=== PATIENT | female | born 1980 | race Caucasian/White ===

== ENCOUNTER 2016-10-12 09:34 | Emergency (ER) | payer OTHER ==
[2011-01-02 06:17] VITALS: BMI 26.8
[2016-10-12 10:28] LABS: BASOPHILS 0.5 % (0.0-2.0); EOSINOPHILS 5.4 % (0-7); HEMATOCRIT 41.3 % (36.0-48.0); LYMPHOCYTES 24.2 % (15-50); MCH 30.4 pg (26.0-34.0); MCHC 33.9 g/dL (31.0-37.0); MCV 89.8 fL (80.0-100.0); MEAN PLATELET VOLUME 9.4 fL (7.4-10.4); NEUTROPHILS 60.9 % (40-80); PLATELET COUNT 322 10x3/uL (130-400); RDW 12.2 % (11.5-14.5); WBC 5.9 10x3/uL (4.8-10.8)
[2016-10-12 10:37] LABS: HCG URINE NEGATIVE (NEGATIVE)
[2016-10-12 10:45] LABS: ALBUMIN 4.1 g/dL (3.4-5.0); ALKALINE PHOSPHATASE 69 U/L (46-116); ALT (SGPT) 45 U/L (10-68); CALC OSMOLALITY 279 mosm/kg (275-300); CARBON DIOXIDE 29.7 mmol/L (21.0-32.0); CHLORIDE - SERUM 104 mmol/L (98-107); CREATININE - SERUM 0.8 mg/dL (0.6-1.3); GLUCOSE 97 mg/dL (74-106); POTASSIUM - SERUM 4.3 mmol/L (3.5-5.1); PROTEIN - SERUM 7.8 g/dL (6.4-8.2); SODIUM 140 mmol/L (136-145); UREA NITROGEN 15 mg/dL (7-18); eGFR NON AFRICAN AMERICAN 87 mL/min (90-120)
[2016-10-12 10:52] LABS: APPEARANCE CLOUDY (CLEAR); BACTERIA MODERATE /hpf (NONE SEEN); BILIRUBIN NEGATIVE (NEGATIVE); COLOR STRAW (YELLOW); GLUCOSE NEGATIVE (NEGATIVE); KETONE NEGATIVE (NEGATIVE); LEUKOCYTE ESTERASE NEGATIVE (NEGATIVE); NITRITE NEGATIVE (NEGATIVE); PROTEIN TRACE mg/dL (NEGATIVE); RED CELLS - URINE 0-5 /hpf (0-5); SPECIFIC GRAVITY 1.005 (1.005-1.020); UROBILINOGEN NORMAL (NORMAL); WHITE CELLS - URINE OCC /hpf (0-5)
[2016-10-12 10:53] LABS: MUCUS <1+ /lpf (NONE SEEN)
== END 2016-10-12 13:21 | disposition home or self-care (01) ==
LOC: D.ER 09:34
PROVIDERS: Emergency Medicine
DX: R07.89 Other chest pain (principal); S00.83XA Contusion of other part of head, initial encounter; W19.XXXA Unspecified fall, initial encounter; Y93.89 Activity, other specified; Y92.019 Unspecified place in single-family (private) house as the place of occurrence of the external cause; Z85.41 Personal history of malignant neoplasm of cervix uteri; R00.2 Palpitations; I47.1 Supraventricular tachycardia; R00.1 Bradycardia, unspecified

== ENCOUNTER 2017-02-20 09:18 | Emergency (ER) | payer SELFPAY ==
[2011-01-02 06:17] VITALS: BMI 26.8
[2017-02-20 10:05] LABS: APPEARANCE SLT CLOUDY (CLEAR); BILIRUBIN NEGATIVE (NEGATIVE); COLOR YELLOW (YELLOW); GLUCOSE NEGATIVE (NEGATIVE); KETONE NEGATIVE (NEGATIVE); LEUKOCYTE ESTERASE NEGATIVE (NEGATIVE); NITRITE NEGATIVE (NEGATIVE); PROTEIN NEGATIVE (NEGATIVE); UROBILINOGEN NORMAL (NORMAL)
[2017-02-20 10:08] LABS: BACTERIA NONE SEEN /hpf (NONE SEEN); EPITHELIAL CELLS 25-50 /hpf (0-5); RED CELLS - URINE NONE SEEN /hpf (0-5); WHITE CELLS - URINE 0-5 /hpf (0-5)
[2017-02-20 10:18] LABS: BASOPHILS 0.4 % (0-2); EOSINOPHILS 4.1 % (0-7); HEMOGLOBIN 14.3 g/dL (12-16); IMMATURE GRANULOCYTES 0.2 % (0-5); LYMPHOCYTES 31.2 % (15-50); MCH 30.7 pg (26.0-34.0); MCV 90.1 fL (80.0-100.0); MEAN PLATELET VOLUME 9.1 fL (7.4-10.4); MONOCYTES 10.5 % (2-11); NEUTROPHILS 53.6 % (40-80); PLATELET COUNT 282 10x3/uL (130-400); RBC 4.66 10x6/uL (4.00-5.40); WBC 5.6 10x3/uL (4.8-10.8)
[2017-02-20 10:46] LABS: ALBUMIN 4.2 g/dL (3.4-5.0); ALKALINE PHOSPHATASE 106 U/L (46-116); ALT (SGPT) 78 U/L (10-68); BILIRUBIN - TOTAL 0.55 mg/dL (0.2-1.3); CALC OSMOLALITY 271 mosm/kg (275-300); CALCIUM 9.4 mg/dL (8.5-10.1); CARBON DIOXIDE 25.9 mmol/L (21.0-32.0); CHLORIDE - SERUM 101 mmol/L (98-107); CREATININE - SERUM 0.7 mg/dL (0.6-1.3); GLUCOSE 94 mg/dL (74-106); POTASSIUM - SERUM 3.4 mmol/L (3.5-5.1); PROTEIN - SERUM 8.1 g/dL (6.4-8.2); SODIUM 136 mmol/L (136-145); UREA NITROGEN 12 mg/dL (7-18); eGFR NON AFRICAN AMERICAN > 90 mL/min (90-120)
[2017-02-20 10:56] LABS: HCG SERUM NEGATIVE (NEGATIVE)
== END 2017-02-20 16:24 | disposition home or self-care (01) ==
LOC: D.ER 09:18
PROVIDERS: Emergency Medicine
DX: R10.31 Right lower quadrant pain (principal); Z85.41 Personal history of malignant neoplasm of cervix uteri

== ENCOUNTER 2017-06-07 07:00 | Emergency (ER) | payer BC ==
[2011-01-02 06:17] VITALS: BMI 26.8
[2017-06-07 07:53] LABS: BASOPHILS 0.5 % (0-2); EOSINOPHILS 2.8 % (0-7); HEMATOCRIT 39.6 % (36.0-48.0); IMMATURE GRANULOCYTES 0.1 % (0-5); LYMPHOCYTES 24.1 % (15-50); MCH 30.6 pg (26.0-34.0); MCHC 35.4 g/dL (31.0-37.0); MCV 86.7 fL (80.0-100.0); MEAN PLATELET VOLUME 9.4 fL (7.4-10.4); MONOCYTES 14.7 % (2-11); NEUTROPHILS 57.8 % (40-80); PLATELET COUNT 305 10x3/uL (130-400); RBC 4.57 10x6/uL (4.00-5.40); RDW 12.1 % (11.5-14.5); WBC 7.9 10x3/uL (4.8-10.8)
[2017-06-07 08:02] LABS: APPEARANCE HAZY (CLEAR); BILIRUBIN NEGATIVE (NEGATIVE); COLOR YELLOW (YELLOW); GLUCOSE NEGATIVE (NEGATIVE); HCG URINE NEGATIVE (NEGATIVE); KETONE NEGATIVE (NEGATIVE); NITRITE NEGATIVE (NEGATIVE); PROTEIN NEGATIVE (NEGATIVE); SPECIFIC GRAVITY 1.015 (1.005-1.020); UROBILINOGEN NORMAL (NORMAL)
[2017-06-07 08:08] LABS: BACTERIA MODERATE /hpf (NONE SEEN); RED CELLS - URINE 0-5 /hpf (0-5); WHITE CELLS - URINE 0-5 /hpf (0-5)
[2017-06-07 08:09] LABS: MUCUS <1+ /lpf (NONE SEEN)
[2017-06-07 08:20] LABS: ALBUMIN 4.4 g/dL (3.4-5.0); ALKALINE PHOSPHATASE 93 U/L (46-116); ALT (SGPT) 44 U/L (10-68); BILIRUBIN - TOTAL 0.55 mg/dL (0.2-1.3); CALC OSMOLALITY 272 mosm/kg (275-300); CALCIUM 9.8 mg/dL (8.5-10.1); CARBON DIOXIDE 26.6 mmol/L (21.0-32.0); CHLORIDE - SERUM 101 mmol/L (98-107); CREATININE - SERUM 0.8 mg/dL (0.6-1.3); GLUCOSE 109 mg/dL (74-106); PROTEIN - SERUM 8.4 g/dL (6.4-8.2); SODIUM 137 mmol/L (136-145); UREA NITROGEN 8 mg/dL (7-18); eGFR NON AFRICAN AMERICAN 86 mL/min (90-120)
== END 2017-06-07 10:35 | disposition home or self-care (01) ==
LOC: D.ER 07:00
PROVIDERS: Emergency Medicine
DX: I49.9 Cardiac arrhythmia, unspecified (principal)

== ENCOUNTER 2017-07-29 07:04 | Emergency (ER) | payer BC ==
[2011-01-02 06:17] VITALS: BMI 26.8
[2017-07-29 07:42] LABS: BASOPHILS 0.4 % (0-2); EOSINOPHILS 2.3 % (0-7); HEMOGLOBIN 14.2 g/dL (12-16); IMMATURE GRANULOCYTES 0.3 % (0-5); LYMPHOCYTES 23.7 % (15-50); MCH 30.3 pg (26.0-34.0); MCHC 35.5 g/dL (31.0-37.0); MCV 85.3 fL (80.0-100.0); MONOCYTES 10.5 % (2-11); NEUTROPHILS 62.8 % (40-80); PLATELET COUNT 361 10x3/uL (130-400); RBC 4.69 10x6/uL (4.00-5.40); RDW 12.1 % (11.5-14.5); WBC 7.8 10x3/uL (4.8-10.8)
[2017-07-29 07:55] LABS: ALBUMIN 4.5 g/dL (3.4-5.0); ALKALINE PHOSPHATASE 73 U/L (46-116); ALT (SGPT) 25 U/L (10-68); BILIRUBIN - TOTAL 0.54 mg/dL (0.2-1.3); CALC OSMOLALITY 267 mosm/kg (275-300); CALCIUM 9.5 mg/dL (8.5-10.1); CARBON DIOXIDE 22.1 mmol/L (21.0-32.0); CHLORIDE - SERUM 100 mmol/L (98-107); CREATININE - SERUM 0.8 mg/dL (0.6-1.3); GLUCOSE 89 mg/dL (74-106); PROTEIN - SERUM 8.3 g/dL (6.4-8.2); SODIUM 135 mmol/L (136-145); UREA NITROGEN 11 mg/dL (7-18); eGFR NON AFRICAN AMERICAN 86 mL/min (90-120)
[2017-07-29 07:57] LABS: POTASSIUM - SERUM 2.9 mmol/L (3.5-5.1)
[2017-07-29 08:06] LABS: CHOL - HDL RATIO 2.9 ratio (2.3-4.1); CHOLESTEROL, TOTAL 201 mg/dL (0-200); CKMB 1.5 U/L (0.0-3.6); CREATINE KINASE 134 UL (21-215); HDL CHOLESTEROL 69 mg/dL (32-96); LDL CHOLESTEROL 121 mg/dL (0-100); LDL-HDL RATIO 1.8 ratio (1.5-3.5); TRIGLYCERIDE 59 mg/dL (30-200)
[2017-07-29 08:11] LABS: TROPONIN-I < 0.017 ng/mL (0.000-0.060)
[2017-07-29 09:23] LABS: HCG URINE NEGATIVE (NEGATIVE)
[2017-07-29 09:31] LABS: APPEARANCE CLEAR (CLEAR); BILIRUBIN NEGATIVE (NEGATIVE); COLOR STRAW (YELLOW); GLUCOSE NEGATIVE (NEGATIVE); KETONE NEGATIVE (NEGATIVE); NITRITE NEGATIVE (NEGATIVE); PROTEIN NEGATIVE (NEGATIVE); UROBILINOGEN NORMAL (NORMAL)
[2017-07-29 09:32] LABS: BACTERIA FEW /hpf (NONE SEEN); EPITHELIAL CELLS 0-5 /hpf (0-5); RED CELLS - URINE 0-5 /hpf (0-5); WHITE CELLS - URINE 0-5 /hpf (0-5)
== END 2017-07-29 10:24 | disposition home or self-care (01) ==
LOC: D.ER 07:04
PROVIDERS: Emergency Medicine
DX: I49.9 Cardiac arrhythmia, unspecified (principal)

== ENCOUNTER 2017-08-04 07:07 | Emergency (ER) | payer BC ==
[2011-01-02 06:17] VITALS: BMI 26.8
[2017-08-04 07:41] LABS: BASOPHILS 0.4 % (0-2); EOSINOPHILS 4.9 % (0-7); HEMATOCRIT 39.9 % (36.0-48.0); HEMOGLOBIN 14.1 g/dL (12-16); IMMATURE GRANULOCYTES 0.1 % (0-5); LYMPHOCYTES 27.1 % (15-50); MCH 30.6 pg (26.0-34.0); MCHC 35.3 g/dL (31.0-37.0); MCV 86.6 fL (80.0-100.0); MEAN PLATELET VOLUME 9.2 fL (7.4-10.4); MONOCYTES 11.4 % (2-11); NEUTROPHILS 56.1 % (40-80); PLATELET COUNT 366 10x3/uL (130-400); RBC 4.61 10x6/uL (4.00-5.40); RDW 12.1 % (11.5-14.5); WBC 7.6 10x3/uL (4.8-10.8)
[2017-08-04 08:03] LABS: ALBUMIN 4.5 g/dL (3.4-5.0); ALKALINE PHOSPHATASE 72 U/L (46-116); ALT (SGPT) 21 U/L (10-68); BILIRUBIN - TOTAL 0.27 mg/dL (0.2-1.3); CALC OSMOLALITY 278 mosm/kg (275-300); CALCIUM 9.5 mg/dL (8.5-10.1); CARBON DIOXIDE 26.2 mmol/L (21.0-32.0); CHLORIDE - SERUM 101 mmol/L (98-107); CREATININE - SERUM 0.9 mg/dL (0.6-1.3); GLUCOSE 99 mg/dL (74-106); POTASSIUM - SERUM 3.5 mmol/L (3.5-5.1); PROTEIN - SERUM 8.4 g/dL (6.4-8.2); SODIUM 139 mmol/L (136-145); UREA NITROGEN 16 mg/dL (7-18); eGFR NON AFRICAN AMERICAN 75 mL/min (90-120)
[2017-08-04 08:11] LABS: CREATINE KINASE 196 UL (21-215); MAGNESIUM - SERUM 2.3 mg/dL (1.8-2.4); PRO BNP 10 pg/mL (0-125); TROPONIN-I < 0.017 ng/mL (0.000-0.060)
== END 2017-08-04 08:30 | disposition home or self-care (01) ==
LOC: D.ER 07:07
PROVIDERS: Emergency Medicine; Family Medicine
DX: R00.2 Palpitations (principal); R00.0 Tachycardia, unspecified

== ENCOUNTER 2017-09-14 09:35 | Emergency (ER) | payer BC ==
[2011-01-02 06:17] VITALS: BMI 26.8
[2017-09-14 10:47] LABS: BASOPHILS 0.1 % (0-2); EOSINOPHILS 2.5 % (0-7); HEMATOCRIT 40.8 % (36.0-48.0); HEMOGLOBIN 14.3 g/dL (12-16); IMMATURE GRANULOCYTES 0.1 % (0-5); LYMPHOCYTES 20.8 % (15-50); MCV 85.5 fL (80.0-100.0); MEAN PLATELET VOLUME 9.4 fL (7.4-10.4); MONOCYTES 9.8 % (2-11); NEUTROPHILS 66.7 % (40-80); PLATELET COUNT 313 10x3/uL (130-400); RBC 4.77 10x6/uL (4.00-5.40); RDW 12.1 % (11.5-14.5); WBC 9.2 10x3/uL (4.8-10.8)
[2017-09-14 11:00] LABS: ALBUMIN 4.2 g/dL (3.4-5.0); ALKALINE PHOSPHATASE 71 U/L (46-116); ALT (SGPT) 29 U/L (10-68); CALC OSMOLALITY 277 mosm/kg (275-300); CALCIUM 9.5 mg/dL (8.5-10.1); CARBON DIOXIDE 20.3 mmol/L (21.0-32.0); CHLORIDE - SERUM 103 mmol/L (98-107); GLUCOSE 96 mg/dL (74-106); POTASSIUM - SERUM 3.3 mmol/L (3.5-5.1); PROTEIN - SERUM 7.7 g/dL (6.4-8.2); SODIUM 138 mmol/L (136-145); UREA NITROGEN 19 mg/dL (7-18); eGFR NON AFRICAN AMERICAN 67 mL/min (90-120)
[2017-09-14 11:10] LABS: CREATINE KINASE 105 UL (21-215); THYROID STIMULATING HORMONE 2.09 uIU/mL (0.36-3.74); TROPONIN-I < 0.017 ng/mL (0.000-0.060)
== END 2017-09-14 12:22 | disposition home or self-care (01) ==
LOC: D.ER 09:35
PROVIDERS: Emergency Medicine
DX: R00.2 Palpitations (principal); R07.9 Chest pain, unspecified; E87.6 Hypokalemia

== ENCOUNTER → 2017-10-02 08:46 | Outpatient (CLI) | payer BC ==
[2011-01-02 06:17] VITALS: BMI 26.8
== END | disposition home or self-care (01) ==
LOC: D.US 08:46
DX: R10.9 Unspecified abdominal pain (principal)

== ENCOUNTER 2017-10-04 01:46 | Emergency (ER) | payer BC ==
[2011-01-02 06:17] VITALS: BMI 26.8
[2017-10-04 03:12] LABS: BASOPHILS 0.2 % (0-2); EOSINOPHILS 1.8 % (0-7); HEMATOCRIT 39.4 % (36.0-48.0); HEMOGLOBIN 14.2 g/dL (12-16); IMMATURE GRANULOCYTES 0.1 % (0-5); LYMPHOCYTES 25.9 % (15-50); MCH 30.7 pg (26.0-34.0); MCV 85.1 fL (80.0-100.0); MEAN PLATELET VOLUME 9.3 fL (7.4-10.4); MONOCYTES 12.6 % (2-11); NEUTROPHILS 59.4 % (40-80); PLATELET COUNT 372 10x3/uL (130-400); RBC 4.63 10x6/uL (4.00-5.40); RDW 11.9 % (11.5-14.5); WBC 8.9 10x3/uL (4.8-10.8)
[2017-10-04 03:19] LABS: HCG SERUM NEGATIVE (NEGATIVE)
[2017-10-04 03:24] LABS: ALBUMIN 4.6 g/dL (3.4-5.0); ALKALINE PHOSPHATASE 72 U/L (46-116); ALT (SGPT) 43 U/L (10-68); CALC OSMOLALITY 277 mosm/kg (275-300); CARBON DIOXIDE 18.9 mmol/L (21.0-32.0); CHLORIDE - SERUM 104 mmol/L (98-107); GLUCOSE 105 mg/dL (74-106); POTASSIUM - SERUM 3.2 mmol/L (3.5-5.1); PROTEIN - SERUM 8.4 g/dL (6.4-8.2); SODIUM 140 mmol/L (136-145); UREA NITROGEN 10 mg/dL (7-18); eGFR NON AFRICAN AMERICAN 67 mL/min (90-120)
[2017-10-04 03:35] LABS: CKMB 1.9 U/L (0.0-3.6); CREATINE KINASE 177 UL (21-215); TROPONIN-I < 0.017 ng/mL (0.000-0.060)
[2017-10-04 05:11] LABS: APPEARANCE CLOUDY (CLEAR); BILIRUBIN NEGATIVE (NEGATIVE); COLOR YELLOW (YELLOW); GLUCOSE NEGATIVE (NEGATIVE); KETONE MODERATE mg/dL (NEGATIVE); NITRITE NEGATIVE (NEGATIVE); PROTEIN NEGATIVE (NEGATIVE); UROBILINOGEN NORMAL (NORMAL)
[2017-10-04 05:12] LABS: BACTERIA MODERATE /hpf (NONE SEEN); RED CELLS - URINE 0-5 /hpf (0-5); WHITE CELLS - URINE 0-5 /hpf (0-5)
[2017-10-04 05:51] LABS: UDS - AMPHET POSITIVE QUAL (NEGATIVE); UDS - BARB NEGATIVE QUAL (NEGATIVE); UDS - BENZO NEGATIVE QUAL (NEGATIVE); UDS - COCAINE NEGATIVE QUAL (NEGATIVE); UDS - OPIATE NEGATIVE QUAL (NEGATIVE); UDS - PCP NEGATIVE QUAL (NEGATIVE); UDS - THC NEGATIVE QUAL (NEGATIVE)
== END 2017-10-04 06:58 | disposition home or self-care (01) ==
LOC: D.ER 01:46
PROVIDERS: Family Medicine
DX: R00.2 Palpitations (principal); E87.6 Hypokalemia

== ENCOUNTER 2017-12-12 10:03 | Emergency (ER) | payer BC ==
[2011-01-02 06:17] VITALS: BMI 26.8
[2017-12-12 11:29] LABS: BASOPHILS 0.3 % (0-2); EOSINOPHILS 1.9 % (0-7); HEMATOCRIT 40.1 % (36.0-48.0); HEMOGLOBIN 14.2 g/dL (12-16); IMMATURE GRANULOCYTES 0.1 % (0-5); LYMPHOCYTES 20.1 % (15-50); MCH 30.3 pg (26.0-34.0); MCHC 35.4 g/dL (31.0-37.0); MCV 85.7 fL (80.0-100.0); MEAN PLATELET VOLUME 9.4 fL (7.4-10.4); MONOCYTES 12.2 % (2-11); NEUTROPHILS 65.4 % (40-80); PLATELET COUNT 382 10x3/uL (130-400); RBC 4.68 10x6/uL (4.00-5.40); WBC 9.1 10x3/uL (4.8-10.8)
[2017-12-12 11:36] LABS: INR 1.06 (0.85-1.17); PROTIME 13.4 SECONDS (11.6-15.0)
[2017-12-12 11:37] LABS: APTT 28.2 SECONDS (22.8-39.4)
[2017-12-12 11:38] LABS: D-DIMER-QUANTITATIVE < 0.27 ug/mLFEU (0.20-0.54)
[2017-12-12 11:54] LABS: ALBUMIN 4.4 g/dL (3.4-5.0); ALKALINE PHOSPHATASE 75 U/L (46-116); ALT (SGPT) 24 U/L (10-68); BILIRUBIN - TOTAL 0.57 mg/dL (0.2-1.3); CALC OSMOLALITY 273 mosm/kg (275-300); CALCIUM 9.3 mg/dL (8.5-10.1); CHLORIDE - SERUM 102 mmol/L (98-107); CREATININE - SERUM 0.8 mg/dL (0.6-1.3); GLUCOSE 114 mg/dL (74-106); PROTEIN - SERUM 8.5 g/dL (6.4-8.2); SODIUM 137 mmol/L (136-145); UREA NITROGEN 9 mg/dL (7-18); eGFR NON AFRICAN AMERICAN 86 mL/min (90-120)
[2017-12-12 12:06] LABS: CKMB 1.5 U/L (0.0-3.6); CREATINE KINASE 160 UL (21-215); PRO BNP 17 pg/mL (0-125); TROPONIN-I < 0.017 ng/mL (0.000-0.060)
== END 2017-12-12 15:20 | disposition home or self-care (01) ==
LOC: D.ER 10:03
PROVIDERS: Family Medicine
DX: R00.0 Tachycardia, unspecified (principal); E86.0 Dehydration

== ENCOUNTER 2017-12-31 12:52 | Emergency (ER) | payer BC ==
[2011-01-02 06:17] VITALS: BMI 26.8
[2017-12-31 14:19] LABS: ALBUMIN 4.2 g/dL (3.4-5.0); ALKALINE PHOSPHATASE 89 U/L (46-116); ALT (SGPT) 81 U/L (10-68); CALC OSMOLALITY 278 mosm/kg (275-300); CALCIUM 9.8 mg/dL (8.5-10.1); CARBON DIOXIDE 24.1 mmol/L (21.0-32.0); CHLORIDE - SERUM 103 mmol/L (98-107); CREATININE - SERUM 0.8 mg/dL (0.6-1.3); GLUCOSE 108 mg/dL (74-106); POTASSIUM - SERUM 3.5 mmol/L (3.5-5.1); PROTEIN - SERUM 8.2 g/dL (6.4-8.2); SODIUM 140 mmol/L (136-145); UREA NITROGEN 11 mg/dL (7-18); eGFR NON AFRICAN AMERICAN 86 mL/min (90-120)
[2017-12-31 14:42] LABS: BASOPHILS 0.4 % (0-2); HEMATOCRIT 39.8 % (36.0-48.0); HEMOGLOBIN 13.9 g/dL (12-16); IMMATURE GRANULOCYTES 0.2 % (0-5); LYMPHOCYTES 28.7 % (15-50); MCH 30.5 pg (26.0-34.0); MCHC 34.9 g/dL (31.0-37.0); MCV 87.5 fL (80.0-100.0); MEAN PLATELET VOLUME 9.5 fL (7.4-10.4); NEUTROPHILS 53.7 % (40-80); PLATELET COUNT 359 10x3/uL (130-400); RBC 4.55 10x6/uL (4.00-5.40); RDW 12.3 % (11.5-14.5); WBC 8.4 10x3/uL (4.8-10.8)
[2017-12-31 14:45] LABS: APPEARANCE HAZY (CLEAR); BILIRUBIN NEGATIVE (NEGATIVE); COLOR YELLOW (YELLOW); GLUCOSE NEGATIVE (NEGATIVE); KETONE NEGATIVE (NEGATIVE); NITRITE NEGATIVE (NEGATIVE); PROTEIN NEGATIVE (NEGATIVE); UROBILINOGEN NORMAL (NORMAL)
[2017-12-31 14:47] LABS: BACTERIA FEW /hpf (NONE SEEN); EPITHELIAL CELLS 0-5 /hpf (0-5); RED CELLS - URINE OCC /hpf (0-5)
== END 2017-12-31 15:43 | disposition home or self-care (01) ==
LOC: D.ER 12:52
PROVIDERS: Family Medicine
DX: L29.9 Pruritus, unspecified (principal)

== ENCOUNTER 2019-06-18 23:36 | Emergency (ER) | payer MEDICAID ==
[~2019-06-18] VITALS: Ht 165.1 cm; Wt 52.3 kg
[2019-06-18 23:46] VITALS: Ht 165.1 cm; Wt 52.3 kg
[2019-06-19 00:19] VITALS: BP 123/75
--- NOTE | 2019-06-19 00:22 | NUR ---
DR STEPHENSON NOTIFIED AND REVIEWED PT'S BEHAVIOR AND ASSESSMENT RESULTS. PT IS A LOW RISK PER DR STEPHENSON. DR STEPHENSON STATED TO GIVE RESOURCES TO PT AT TIME OF DISCHARGE. NO FURTHER ORDERS AT THIS TIME. RESOURCES REVIEWED WITH PT AND SHE VERBALIZED UNDERSTANDING.
== END 2019-06-19 00:32 | disposition home or self-care (01) ==
LOC: D.ER 23:36
DX: F10.129 Alcohol abuse with intoxication, unspecified (principal)

== ENCOUNTER 2019-09-26 15:31 | Emergency (ER) | payer MEDICAID ==
[~2019-09-26] VITALS: Ht 165.1 cm; Wt 54.5 kg
[2019-09-26 15:33] VITALS: Ht 165.1 cm; Wt 54.5 kg
[2019-09-26 16:02] LABS: APPEARANCE CLEAR (CLEAR); BILIRUBIN NEGATIVE (NEGATIVE); COLOR YELLOW (YELLOW); GLUCOSE NEGATIVE (NEGATIVE); KETONE NEGATIVE (NEGATIVE); NITRITE NEGATIVE (NEGATIVE); PROTEIN NEGATIVE (NEGATIVE); UROBILINOGEN NORMAL (NORMAL)
[2019-09-26 16:07] LABS: BASOPHILS 0.1 % (0-2); EOSINOPHILS 0.1 % (0-7); HEMOGLOBIN 13.4 g/dL (12-16); IMMATURE GRANULOCYTES 0.3 % (0-5); LYMPHOCYTES 3.9 % (15-50); MCH 30.4 pg (26.0-34.0); MCHC 33.5 g/dL (31.0-37.0); MCV 90.7 fL (80.0-100.0); MONOCYTES 8.5 % (2-11); NEUTROPHILS 87.1 % (40-80); RBC 4.41 10x6/uL (4.00-5.40); RDW 12.5 % (11.5-14.5)
[2019-09-26 16:09] LABS: PLATELET COUNT 267 10x3/uL (130-400)
[2019-09-26 16:14] LABS: CALC OSMOLALITY 281 mosm/kg (275-300); CALCIUM 7.6 mg/dL (8.5-10.1); CARBON DIOXIDE 20.8 mmol/L (21.0-32.0); CHLORIDE - SERUM 106 mmol/L (98-107); CREATININE - SERUM 0.7 mg/dL (0.6-1.3); GLUCOSE 116 mg/dL (74-106); POTASSIUM - SERUM 3.1 mmol/L (3.5-5.1); SODIUM 140 mmol/L (136-145); UREA NITROGEN 19 mg/dL (7-18); eGFR NON AFRICAN AMERICAN > 90 mL/min (90-120)
[2019-09-26 16:20] LABS: ALBUMIN 3.7 g/dL (3.4-5.0); ALKALINE PHOSPHATASE 58 U/L (30-120); ALT (SGPT) 27 U/L (10-68); BILIRUBIN - TOTAL 0.54 mg/dL (0.2-1.3); PROTEIN - SERUM 7.3 g/dL (6.4-8.2)
[2019-09-26 16:44] LABS: UDS - AMPHET POSITIVE QUAL (NEGATIVE); UDS - BARB NEGATIVE QUAL (NEGATIVE); UDS - BENZO NEGATIVE QUAL (NEGATIVE); UDS - COCAINE NEGATIVE QUAL (NEGATIVE); UDS - OPIATE NEGATIVE QUAL (NEGATIVE); UDS - PCP NEGATIVE QUAL (NEGATIVE); UDS - THC NEGATIVE QUAL (NEGATIVE)
[2019-09-26] MEDS ORDERED: PHENERGAN25 M1 PO (18:59)
[2019-09-26] MEDS ORDERED: K-TAB10 MEQ PO (18:59)
[2019-09-26 19:15] VITALS: BP 116/73
== END 2019-09-26 19:15 | disposition home or self-care (01) ==
LOC: D.ER 15:31
PROVIDERS: Family Medicine
DX: K52.9 Noninfective gastroenteritis and colitis, unspecified (principal); E87.8 Other disorders of electrolyte and fluid balance, not elsewhere classified

== ENCOUNTER 2020-02-28 20:28 | Observation (INO) | payer MEDICAID ==
[~2020-02-28] VITALS: Ht 165.1 cm; Wt 59.5 kg
[~2020-02-28 20:28] MED LIST: K-TAB10 MEQ PO; PHENERGAN25 M1 PO
[2020-02-28] MEDS ORDERED: MULTI-DAY VITAM1 TAB PO (20:35)
[2020-02-28] MEDS ORDERED: ADDERALL 30 MG30 MG PO (20:35)
[2020-02-28] MEDS ORDERED: DUEXIS 800-26.1 EACH PO (20:36)
[2020-02-28 21:20] LABS: BASOPHILS 0.6 % (0-2); HEMATOCRIT 40.5 % (36.0-48.0); HEMOGLOBIN 13.7 g/dL (12-16); IMMATURE GRANULOCYTES 0.1 % (0-5); LYMPHOCYTES 36.2 % (15-50); MCH 29.8 pg (26.0-34.0); MCHC 33.8 g/dL (31.0-37.0); MEAN PLATELET VOLUME 8.8 fL (7.4-10.4); MONOCYTES 9.8 % (2-11); NEUTROPHILS 50.3 % (40-80); RDW 12.4 % (11.5-14.5); WBC 6.9 10x3/uL (4.8-10.8)
[2020-02-28 21:21] LABS: PLATELET COUNT 364 10x3/uL (130-400)
[2020-02-28 21:29] LABS: APTT 28.4 SECONDS (22.8-39.4); CALC OSMOLALITY 269 mosm/kg (275-300); CALCIUM 9.4 mg/dL (8.5-10.1); CARBON DIOXIDE 24.7 mmol/L (21.0-32.0); CHLORIDE - SERUM 101 mmol/L (98-107); GLUCOSE 86 mg/dL (74-106); INR 0.98 (0.85-1.17); POTASSIUM - SERUM 3.2 mmol/L (3.5-5.1); PROTIME 12.9 SECONDS (11.6-15.0); SODIUM 135 mmol/L (136-145); UREA NITROGEN 15 mg/dL (7-18); eGFR NON AFRICAN AMERICAN 66 mL/min (90-120)
[2020-02-28 21:30] LABS: D-DIMER-QUANTITATIVE < 0.27 ug/mLFEU (0.20-0.54)
[2020-02-28 21:38] LABS: HCG SERUM NEGATIVE (NEGATIVE)
[2020-02-28 21:46] LABS: ALBUMIN 4.3 g/dL (3.4-5.0); ALKALINE PHOSPHATASE 58 U/L (30-120); ALT (SGPT) 23 U/L (10-68); BILIRUBIN - TOTAL 0.36 mg/dL (0.2-1.3); CKMB 3.1 U/L (0.0-3.6); CREATINE KINASE 265 UL (21-215); MAGNESIUM - SERUM 2.2 mg/dL (1.8-2.4); TROPONIN-I < 0.017 ng/mL (0.000-0.060)
[2020-02-28 21:48] VITALS: BP 119/86
--- NOTE | 2020-02-28 22:12 | NUR ---
DR. STEPHENSON NOTIFIED AND REVIEWED PT'S BEHAVIOR AND ASSESSMENT RESULTS. PT IS A LOW RISK PER DR. STEPHENSON. DR. STEPHENSON STATED TO GIVE RESOURECES TO PT AT TIME OF DISCHARGE. NO FURTHER ORDERS AT THIS TIME. RESOURCES REVIEWED WITH PT AND SHE VERBALIZED UNDERSTANDING.
[2020-02-28 22:19] LABS: UDS - AMPHET NEGATIVE QUAL (NEGATIVE); UDS - BARB NEGATIVE QUAL (NEGATIVE); UDS - BENZO NEGATIVE QUAL (NEGATIVE); UDS - COCAINE NEGATIVE QUAL (NEGATIVE); UDS - OPIATE NEGATIVE QUAL (NEGATIVE); UDS - PCP NEGATIVE QUAL (NEGATIVE); UDS - THC NEGATIVE QUAL (NEGATIVE)
--- NOTE | 2020-02-29 01:18 | NUR ---
PT ARRIVED VIA STRETCHER. NO DISTRESS NOTED.
[2020-02-29 01:43] VITALS: BP 95/60
[2020-02-29 01:44] VITALS: BP 95/60; Ht 165.1 cm; Wt 59.5 kg
--- NOTE | 2020-02-29 02:00 | NUR ---
ADMISSION ASSESSMENT, HISTORY AND HOME MED LIST COMPLETED. VSS. SR PER CM HR 74. IV TO LAC WITH NS AT 100CC/HR. IV PATENT. ALERT AND ORIENTED TO PERSON,PLACE AND TIME. BECERRA. EXPLAINED RATIONALE FOR NPO UNTIL SEEN BY CARDIOLOGY. PT STATED UNDERSTANDING. SR UP X1, CALL LIGHT WITHIN REACH.
--- NOTE | 2020-02-29 03:02 | NUR ---
PT RESTING WITH EYES CLOSED. RESP EVEN AND REGULAR. CALL LIGHT WITHIN REACH.
[2020-02-29 04:00] VITALS: BP 89/54
--- NOTE | 2020-02-29 04:44 | NUR ---
PT RESTING WITH EYES CLOSED. RESP EVEN AND REGULAR. CALL LIGHT WITHIN REACH.
[2020-02-29 05:21] LABS: BASOPHILS 0.9 % (0-2); EOSINOPHILS 5.4 % (0-7); HEMATOCRIT 36.3 % (36.0-48.0); HEMOGLOBIN 12.3 g/dL (12-16); IMMATURE GRANULOCYTES 0.2 % (0-5); LYMPHOCYTES 41.6 % (15-50); MCH 30.1 pg (26.0-34.0); MCHC 33.9 g/dL (31.0-37.0); MCV 88.8 fL (80.0-100.0); MEAN PLATELET VOLUME 9.2 fL (7.4-10.4); MONOCYTES 12.7 % (2-11); NEUTROPHILS 39.2 % (40-80); PLATELET COUNT 308 10x3/uL (130-400); RBC 4.09 10x6/uL (4.00-5.40); RDW 12.5 % (11.5-14.5); WBC 5.8 10x3/uL (4.8-10.8)
[2020-02-29 05:57] LABS: CALC OSMOLALITY 274 mosm/kg (275-300); CALCIUM 8.1 mg/dL (8.5-10.1); CARBON DIOXIDE 22.7 mmol/L (21.0-32.0); CHLORIDE - SERUM 108 mmol/L (98-107); CKMB 2.3 U/L (0.0-3.6); CREATINE KINASE 188 UL (21-215); CREATININE - SERUM 0.9 mg/dL (0.6-1.3); GLUCOSE 89 mg/dL (74-106); POTASSIUM - SERUM 3.5 mmol/L (3.5-5.1); SODIUM 138 mmol/L (136-145); UREA NITROGEN 12 mg/dL (7-18); eGFR NON AFRICAN AMERICAN 74 mL/min (90-120)
[2020-02-29 05:59] LABS: TROPONIN-I < 0.017 ng/mL (0.000-0.060)
--- NOTE | 2020-02-29 06:52 | NUR ---
VS THROUGHOUT NIGHT. PT RESTED WELL AFTER ADMISSION. NEEDS MET; WILL CONTINUE TO MONITOR.
[2020-02-29 08:31] VITALS: BP 106/66
[2020-02-29 10:49] LABS: CKMB 1.8 U/L (0.0-3.6); CREATINE KINASE 154 UL (21-215)
[2020-02-29 10:53] LABS: TROPONIN-I < 0.017 ng/mL (0.000-0.060)
--- NOTE | 2020-02-29 14:17 | NUR ---
IV AND TELEMETRY DCD. DC PLANS GIVEN. UNDERSTANDING VOICED.
--- NOTE | 2020-03-01 11:22 | EC ---
PATIENT:TANIA GIBBS DATE OF SERVICE: 02/28/20 SEX: F MEDICAL RECORD: [id number] DATE OF : [birth year] LOCATION:D.M2 D.212 AGE OF PATIENT: 39 ADMISSION DATE: 02/28/20 REFERRING PHYSICIAN: INTERPRETING PHYSICIAN: CURT BRICENO MD ECHOCARDIOGRAM REPORT ECHO CHARGES 4 ECHO COMPLETE Date: 02/29/20 CLINICAL DIAGNOSIS: ARRHYTHMIA HX SVT ECHOCARDIOGRAPHIC MEASUREMENTS (adult normal given) AC root (d.<3.7cm) 2.3 cm LV Septum d (<1.2 cm> 1.3 cm Valve Excursion 1.0 cm LV Septum (systole) 1.5 cm Left Atria (s.<4.0cm> 3.0 cm LVPW d(<1.2cm) 1.1 cm RV (d.<2.3cm) 3.4 cm LVPW (sytole) 1.3 cm LV diastole(<5.6CM) 2.7 cm MV E-F(>70mm/sec) cm LV systole 1.4 cm LVOT Diameter 1.8 cm MV exc.(>10mm) 1.2 cm Est.ejection fraction (50-75%) % DOPPLER: LVIT cm/sec A 50.0 cm/sec E 90.0 cm/sec LA cm/sec RVSP 26 mmHg LVOT 98 cm/sec AOP1/2T m/s Asc. Ao 121 cm/sec RVOT 74 cm/sec RA cm/sec PA 74 cm/sec AV Gradient Peak 5.82 mmHg AV Mean 2.94 mmHg AV Area 2.4 cm MV Gradient Peak 6.63 mmHg MV Mean 1.38 mmHg MV Area cm COMMENTS: Escape Wheel Tooth Cutter: 2 JEAN PIERRE MACDONALD Party Plan Sales Unit Sales Leader: 3 Dr. Christine TAPE# PACS Pericardial Effusion N DATE OF SERVICE: Adequate 2D, color flow imaging, spectral Doppler, and M-Mode. No LVH. LV internal dimension is normal. Wall motion is normal. EF is greater than or equal to 55%. Aortic valve is tricuspid. No evidence of stenosis by Doppler interrogation. Left atrium is normal. Mitral valve shows no prolapse. Physiologic MR. Right-sided chambers are grossly normal. Physiologic TR. TRANSINT:[id number] Voice Confirmation ID: [id number] DOCUMENT ID: [id number] ECHOCARDIOGRAM REPORT [id number] FINLEY GREGORY A MD at 1122 CC: [id number] DICTATION DATE: 02/29/20 1309 GERIATRIC SOCIAL WORK PROFESSOR: 03/01/20 0049 DIS IN 02/29/20 [facility] [address] [place] [address]
--- NOTE | 2020-03-01 11:22 | CN ---
PATIENT NAME:TANIA GIBBS MEDICAL RECORD: [id number] : 82 LOCATION:D.Patricia D.2120 ADMIT DATE: 02/28/20 ACCOUNT: [id number] CONSULTING PHYSICIAN: CURT BRICENO MD REFERRING PHYSICIAN: LOWELL HELTON MD DATE OF CONSULTATION: 02/29/2020 HISTORY OF PRESENT ILLNESS: Pleasant 39-year-old lady with history of autonomic dysfunction, Raynaud's, questionable POTS, previously seen by Dr. Jones in [place] with EP study and by her report well controlled until the last few days. Does well with lifestyle and dietary restrictions as far as arrhythmias and Raynaud's in the last few days. Has been working outside more, noticed increased tachycardia. Questionable SVT historically. Presented to the ER, was found to be hypokalemic with K of 3.2. We are asked to see her concerning her cardiovascular status. Currently, rates controlled. No ectopy on exam. PAST MEDICAL HISTORY: Includes: 1. History of autonomic dysfunction. 2. Raynaud's. 3. Possible POTS syndrome. MEDICATIONS: Include Adderall 30 mg p.o. daily, Duexis p.o. q.8 p.r.n. ALLERGIES: SULFA, BETADINE, DOXYCYCLINE, GENTAMICIN, AND COCONUT. 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 She takes care of all her ADLs. Does well with exercise and hydration. REVIEW OF SYSTEMS: The patient reports easy bruising but reports no swollen glands. The patient reports no fever, no night sweats, no significant weight gain, no significant weight loss. No significant exercise tolerance. The patient reports no dry eyes, no irritation, no vision change. Patient reports no difficulty hearing and no ear pain. Patient reports no frequent nose bleeds or nose and sinus problems. Patient reports on arm pain on exertion. No shortness of breath while lying down. No history of heart murmur. Patient reports no cough, no wheezing or coughing up blood. Patient reports no abdominal pain, no vomiting. Normal appetite. No diarrhea and not vomiting blood. No nausea and no constipation. Patient reports no incontinence. No difficulty urinating. No hematuria. No increased frequency. Patient reports no muscle aches. No weakness, no arthralgias, no back pain. No swelling of the extremities. Patient reports no abnormal mole, no jaundice, no rashes. Reports no loss of consciousness. No weakness and no numbness. No seizures, dizziness, or headaches. The patient reports no depression, no sleep disturbance, feeling safe in a relationship and no alcohol abuse. Patient reports on fatigue. Reports no runny nose or sinus pressure. No itching, no hives, and no frequent sneezing. PHYSICAL EXAMINATION: GENERAL: Pleasant female, in no acute distress, appears stated age. VITAL SIGNS: Blood pressure 106/66, pulse currently 75 and regular. HEENT: Normocephalic, atraumatic. NECK: No bruits noted. HEART: Regular. Questionable II/ systolic ejection murmur. LUNGS: Good air excursion ABDOMEN: Soft, nontender. CONSULT REPORT [id number] TANIA GIBBS EXTREMITIES: Pulses 2+. No edema. DIAGNOSTIC DATA: EKG currently in sinus rhythm with no significant ectopy. IMPRESSION: Suspect recent exacerbation secondary to hypokalemia, replace K. Discussed increasing potassium and diet. Echocardiography will be scheduled. No contraindication at discharge from my standpoint. TRANSINT:[id number] Voice Confirmation ID: [id number] DOCUMENT ID: [id number] CURT BRICENO MD at 1122 CC: [id number] DICTATION DATE: 02/29/20 1117 RESIDENTIAL [place]WN SPECIALIST: 02/29/20 1621 DIS IN 02/29/20 [place] [id number] [place] [id number]
== END 2020-02-29 14:18 | disposition home or self-care (01) ==
LOC: D.ER 20:28 → D.M2 23:46 → OBSVTIME 23:46 → D.M2 02-29 14:18
PROVIDERS: Family Medicine; ADMIT Family Medicine; ATTEND Family Medicine
DX: R00.2 Palpitations (principal); R07.9 Chest pain, unspecified; E86.0 Dehydration; E87.1 Hypo-osmolality and hyponatremia; E87.6 Hypokalemia; F31.9 Bipolar disorder, unspecified; R00.0 Tachycardia, unspecified

== ENCOUNTER 2020-05-24 06:43 | Day surgery (SDC) | payer MEDICAID ==
[2020-05-21 15:04] LABS: HEMATOCRIT 41.3 % (36.0-48.0); HEMOGLOBIN 14.1 g/dL (12-16); MCH 30.7 pg (26.0-34.0); MCHC 34.1 g/dL (31.0-37.0); MEAN PLATELET VOLUME 9.2 fL (7.4-10.4); RBC 4.59 10x6/uL (4.00-5.40); RDW 12.4 % (11.5-14.5); WBC 6.2 10x3/uL (4.8-10.8)
[~2020-05-24] VITALS: Ht 165.1 cm; Wt 59.0 kg
[~2020-05-24 06:43] MED LIST changes: +ADDERALL 10 MG10 MG; +ADDERALL 30 MG30 MG PO; +DUEXIS 800-26.1 EACH PO; +MULTI-DAY VITAM1 TAB PO
[2020-05-24 07:52] VITALS: BP 131/82; Ht 165.1 cm; Wt 59.0 kg
--- NOTE | 2020-05-24 08:00 | NUR ---
SCREENED POSITIVE FOR LIFETIME SUICIDE SCREENING, REFUSES FURTHER EVALUATION HAS SOUGHT OUT TREATMENT FROM A LONG TIME AGO.
[2020-05-24] MEDS ORDERED: HYDROCODON-ACE1 EA10 PO (09:23)
--- NOTE | 2020-05-24 10:08 | NUR ---
PT WAS TREATED WITH ZOFRAN AND EMESIS BAG FOR NAUSEA AND IT DIDNT GO AWAY SO SHE REC'D IM INJECTION OF PHENERGAN WILL SEE IF IT WORKS BETTER. NO ACTIVE VOMITING NOTED.
--- NOTE | 2020-05-24 11:35 | NUR ---
PATIENT AMBULATING AROUND ROOM WITH CRUTCHES WHILE MAINTAINING NWB STATUS ON RLE. NO UNSTEADINESS OR DIZZINESS, AMBULATING WELL WITH CRUTCHES. DISCHARGE INSTRUCTIONS REVIEWED WITH PATIENT AND SPOUSE. DISCHARGED HOME VIA WHEELCHAIR TO PRIVATE VEHICLE WITH SPOUSE
--- NOTE | 2020-05-26 13:14 | OP ---
PATIENT NAME: TANIA GIBBS MEDICAL RECORD: [id number] :82 LOCATION:D.OPS ADMISSION DATE: SURGEON: KATHLEEN MUNOZ MD DATE OF OPERATION: 05/24/2020 PREOPERATIVE DIAGNOSIS: Patellofemoral syndrome. PREOPERATIVE DIAGNOSES: Patellofemoral syndrome plus osteochondral defect of the medial femoral condyle. PROCEDURES. 1. Arthroscopic abrasion chondroplasty of the osteochondral defect. 2. Arthroscopic lateral release. SURGEON: Kathleen Munoz MD ANESTHESIA: General. INTRAOPERATIVE COMPLICATIONS: None. SUMMARY OF PATHOLOGIC FINDINGS: The patient did indeed have an Alpine shaped patella with minimal cracks and fissuring over the lateral facet of the patella; however, upon diagnostic arthroscopy, while the menisci were fine, the patient had an approximately 1.2-1.3 cm chondral flap in the articular weightbearing surface. This required debridement and subsequent subchondral drilling. OPERATIVE SUMMARY IN DETAIL: After obtaining the appropriate preoperative orthopedic surgery consent as well as anesthetic consultation, evaluation and clearance, the patient was brought to the operating room and placed on the operating table in supine position. After general laryngeal mask airway was administered, tourniquet was placed on the proximal aspect of the right lower extremity. Right lower extremity was then prepped and draped in routine sterile fashion. The leg was elevated and exsanguinated, tourniquet was inflated to 350 mmHg. At this point, the appropriate timeout was taken and agreed upon by all given the patient's unique identifiers. Routine inferolateral portal was established followed by superomedial and inferomedial portal. Diagnostic arthroscopy did reveal the above findings. Attention was first turned to the abrasion chondroplasty. Very gently the osteochondral flap was taken down to very stable chondral rim. The defect was not down to the bone; however, was down to the subarticular surface layer. At this point, the PowerPick from [employer] was utilized to perform abrasion chondroplasty to be sure that good penetration was done passed the tied jackie. Having completed this, attention was then turned to the lateral release, arthroscopy was then visualized from the medial portal for direct visualization of the lateral retinaculum. Hook tip [place] tissue ablation system was utilized to release the lateral retinaculum to the inferolateral portal. Having completed this, the knee was insufflated with 30 cc of 0.25% Marcaine with epinephrine and 40 mg of Depo-Medrol. Arthroscopy portals were closed in routine interrupted fashion using 4-0 Prolene. Sterile dressings were applied. Tourniquet was deflated. The patient was awakened and taken to recovery room in stable condition. All final needle and sponge counts were correct. TRANSINT:[id number] Voice Confirmation ID: [id number] DOCUMENT ID: [id number] OPERATIVE REPORT [id number] TANIA GIBBS MD, KATHLEEN HERNÁNDEZ at 1314 CC: [id number] DICTATION DATE: 05/26/20721 MERCHANT PATROLLER: 05/26/20 1220 [facility] 05/24/20 [place] [id number] [place] [address]
== END 2020-05-24 11:35 | disposition home or self-care (01) ==
LOC: D.OPS 06:43 → D.PAN 07:30 → D.OPS 07:30
PROVIDERS: Anesthesiology; ATTEND Orthopaedic Surgery
DX: M22.2X1 Patellofemoral disorders, right knee (principal); M21.961 Unspecified acquired deformity of right lower leg

== ENCOUNTER 2020-12-14 14:28 | Observation (INO) | payer BC ==
[~2020-12-14] VITALS: Ht 165.1 cm; Wt 59.1 kg
--- NOTE | ~2020-12-14 | EC ---
PATIENT:TANIA GIBBS DATE OF SERVICE: 12/14/20 SEX: F MEDICAL RECORD: [id number] DATE OF : 82 LOCATION:D. D.212 AGE OF PATIENT: 39 ADMISSION DATE: 12/14/20 REFERRING PHYSICIAN: INTERPRETING PHYSICIAN: PANCHO REECE MD ECHOCARDIOGRAM REPORT ECHO CHARGES 4 ECHO COMPLETE Date: 12/15/20 CLINICAL DIAGNOSIS: CP ECHOCARDIOGRAPHIC MEASUREMENTS (adult normal given) AC root (d.<3.7cm) 2.4 cm LV Septum d (<1.2 cm> 0.6 cm Valve Excursion 1.6 cm LV Septum (systole) 1.1 cm Left Atria (s.<4.0cm> 2.8 cm LVPW d(<1.2cm) 0.7 cm RV (d.<2.3cm) 2.2 cm LVPW (sytole) 0.8 cm LV diastole(<5.6CM) 4.2 cm MV E-F(>70mm/sec) cm LV systole 2.9 cm LVOT Diameter 1.3 cm MV exc.(>10mm) 1.2 cm Est.ejection fraction (50-75%) % DOPPLER: LVIT cm/sec A 70 cm/sec E 85 cm/sec LA cm/sec RVSP 29 mmHg LVOT 91 cm/sec AOP1/2T m/s Asc. Ao 128 cm/sec RVOT 87 cm/sec RA cm/sec PA 89 cm/sec AV Gradient Peak 6.5 mmHg AV Mean 3.7 mmHg AV Area 1.0 cm MV Gradient Peak 4.8 mmHg MV Mean 2.3 mmHg MV Area cm COMMENTS: Yard Inspector: Jemal IBRAHIM Medical/Surgery Registered Nurse: 2 Dr. Garrison TAPE# Pericardial Effusion N DATE OF SERVICE: CLINICAL HISTORY: Chest pain. INTERPRETATION: Normal left ventricular chamber size and contractile function with ejection fraction of 55% to 60%. Left atrial chamber appears normal. Right ventricular chamber size and function appear normal. The aortic valve appears normal. No aortic regurgitation or stenosis. Mitral valve appears normal. No mitral regurgitation/stenosis. Tricuspid valve appears normal. [id number] tricuspid regurgitation. Pulmonic valve appears normal. No ECHOCARDIOGRAM REPORT [id number] TANIA GIBBS pulmonary regurgitation noted. No pericardial effusion visualized. IMPRESSION: Normal left ventricular chamber size and contractile function with ejection fraction of 55% to 60%. TRANSINT:[id number] Voice Confirmation ID: [id number] DOCUMENT ID: [id number] PANCHO REECE MD CC: [id number] DICTATION DATE: 12/15/20 1617 SCHOOL VOCATIONAL EDUCATOR: 12/15/20 232 DIS IN 12/15/20 [facility] [address] [place] [id number]
[~2020-12-14 14:28] MED LIST changes: +HYDROCODON-ACE1 EA10 PO
[2020-12-14 15:12] LABS: APTT 26.6 SECONDS (22.8-39.4); INR 1.03 (0.85-1.17); PROTIME 12.5 SECONDS (11.6-15.0)
[2020-12-14 15:14] LABS: BASOPHILS 0.6 % (0-2); EOSINOPHILS 3.5 % (0-7); HEMATOCRIT 42.6 % (36.0-48.0); HEMOGLOBIN 14.4 g/dL (12-16); IMMATURE GRANULOCYTES 0.1 % (0-5); LYMPHOCYTE ABS# 1.62 10x3/uL (1.18-3.74); LYMPHOCYTES 23.3 % (15-50); MCH 30.4 pg (26.0-34.0); MCHC 33.8 g/dL (31.0-37.0); MCV 89.9 fL (80.0-100.0); MEAN PLATELET VOLUME 9.5 fL (7.4-10.4); MONOCYTES 9.2 % (2-11); NEUTROPHIL ABS# 4.39 10x3/uL (1.56-6.13); NEUTROPHILS 63.3 % (40-80); PLATELET COUNT 353 10x3/uL (130-400); RBC 4.74 10x6/uL (4.00-5.40); RDW 12.5 % (11.5-14.5); WBC 6.9 10x3/uL (4.8-10.8)
[2020-12-14 15:17] LABS: CALC OSMOLALITY 279 mosm/kg (275-300); CARBON DIOXIDE 25.1 mmol/L (21.0-32.0); CHLORIDE - SERUM 104 mmol/L (98-107); CREATININE - SERUM 0.9 mg/dL (0.6-1.3); GLUCOSE 106 mg/dL (74-106); POTASSIUM - SERUM 3.7 mmol/L (3.5-5.1); SODIUM 140 mmol/L (136-145); UREA NITROGEN 15 mg/dL (7-18); eGFR NON AFRICAN AMERICAN 74 mL/min (90-120)
[2020-12-14 15:25] LABS: D-DIMER-QUANTITATIVE > 20.00 ug/mLFEU (0.20-0.54)
[2020-12-14 15:33] LABS: ALBUMIN 3.8 g/dL (3.4-5.0); ALKALINE PHOSPHATASE 78 U/L (30-120); ALT (SGPT) 70 U/L (10-68); BILIRUBIN - TOTAL 0.29 mg/dL (0.2-1.3); CKMB 0.8 U/L (0.0-3.6); CREATINE KINASE 87 UL (21-215); MAGNESIUM - SERUM 2.1 mg/dL (1.8-2.4); PROTEIN - SERUM 7.4 g/dL (6.4-8.2)
[2020-12-14 15:44] LABS: TROPONIN-I < 0.017 ng/mL (0.000-0.060)
[2020-12-14] MEDS ORDERED: GLUCOSAMINE HC500 MG PO (18:47)
[2020-12-14] MEDS ORDERED: FISH OIL 1,0001 CA1 PO (18:47)
[2020-12-14 20:36] LABS: CKMB 0.8 U/L (0.0-3.6); CREATINE KINASE 77 UL (21-215)
[2020-12-14 20:40] LABS: TROPONIN-I < 0.017 ng/mL (0.000-0.060)
[2020-12-14 23:08] VITALS: BP 106/66; BMI 21.6
[2020-12-15] VITALS: BP 104/63
[2020-12-15 03:04] LABS: BASOPHILS 0 % (0-2); EOSINOPHILS 0 % (0-7); HEMATOCRIT 39.4 % (36.0-48.0); HEMOGLOBIN 13.2 g/dL (12-16); IMMATURE GRANULOCYTES 0.2 % (0-5); LYMPHOCYTE ABS# 0.68 10x3/uL (1.18-3.74); LYMPHOCYTES 8.3 % (15-50); MCH 30.3 pg (26.0-34.0); MCHC 33.5 g/dL (31.0-37.0); MCV 90.6 fL (80.0-100.0); MEAN PLATELET VOLUME 9.5 fL (7.4-10.4); MONOCYTES 1.1 % (2-11); NEUTROPHIL ABS# 7.44 10x3/uL (1.56-6.13); NEUTROPHILS 90.4 % (40-80); PLATELET COUNT 323 10x3/uL (130-400); RBC 4.35 10x6/uL (4.00-5.40); RDW 12.5 % (11.5-14.5); WBC 8.2 10x3/uL (4.8-10.8)
--- NOTE | 2020-12-15 03:07 | NUR ---
HAS BEEN RESTING QUIETLY. RESP EVEN & NON-LABORED. NO DISTRESS NOTED. WILL CONTINUE TO MONITOR
--- NOTE | 2020-12-15 03:07 | NUR ---
1844--PT TO ROOM 2124 BY WHEELCHAIR W/ ER STAFF. AMBULATES TO BED FROM DOORWAY WITHOUT INCIDENT. PLEASANT. A & Ox4 ROOM AIR TELE SR 64 C/O MILD PRESSURE TO CHEST "IT FEELS DIFFERENT THAN PAIN THAT I HAVE PREVIOUSLY HAD. IT'S A TIGHT PRESSURE." WAS GIVEN MORPHINE & ZOFRAN. NITRO CAUSES HER PRESSURE TO BOTTOM OUT. HAD FRIEND BRING HER SOMETHING TO EAT. INSTRUTED TO NOT EAT/DRINK AFTER MIDNIGHT D/T CARDIOLOGY CONSULT IN THE MORNING. VERBALIZES UNDERSTANDING.
[2020-12-15 03:17] LABS: ALBUMIN 3.3 g/dL (3.4-5.0); ALKALINE PHOSPHATASE 71 U/L (30-120); ALT (SGPT) 65 U/L (10-68); BILIRUBIN - TOTAL 0.12 mg/dL (0.2-1.3); CALC OSMOLALITY 284 mosm/kg (275-300); CALCIUM 8.3 mg/dL (8.5-10.1); CARBON DIOXIDE 26.8 mmol/L (21.0-32.0); CHLORIDE - SERUM 107 mmol/L (98-107); CKMB 0.6 U/L (0.0-3.6); CREATINE KINASE 63 UL (21-215); CREATININE - SERUM 1.1 mg/dL (0.6-1.3); GLUCOSE 196 mg/dL (74-106); POTASSIUM - SERUM 4.2 mmol/L (3.5-5.1); PROTEIN - SERUM 6.5 g/dL (6.4-8.2); SODIUM 140 mmol/L (136-145); TROPONIN-I < 0.017 ng/mL (0.000-0.060); UREA NITROGEN 16 mg/dL (7-18); eGFR NON AFRICAN AMERICAN 59 mL/min (90-120)
[2020-12-15 04:00] VITALS: BP 100/54
--- NOTE | 2020-12-15 06:45 | NUR ---
PT LYING IN BED WITH EYES CLOSED. RAISES EASILY TO VERBAL STIMULI. RESP EVEN AND UNLABORED. AAOX4. DENIES NEEDS AT THIS TIME. CLIR. BED IN LOWEST POSITION. SIDE RAILS X2
[2020-12-15 08:17] VITALS: BP 103/55
--- NOTE | 2020-12-15 08:25 | NUR ---
CLEAR JOELLEN URINE SPECIMEN COLLECTED AND SENT TO LAB
[2020-12-15 09:18] LABS: CKMB 0.6 U/L (0.0-3.6); CREATINE KINASE 64 UL (21-215); TROPONIN-I < 0.017 ng/mL (0.000-0.060)
[2020-12-15 09:36] VITALS: Ht 165.1 cm; Wt 59.1 kg
[2020-12-15 09:37] LABS: HCG URINE NEGATIVE (NEGATIVE)
--- NOTE | 2020-12-15 10:50 | NUR ---
PT LEFT UNIT ACCOMPANIED BY HOSPITAL STAFF
--- NOTE | 2020-12-15 11:50 | NUR ---
PT RETURNED TO UNIT ACCOMPANIED BY HOSPTIAL STAFF
--- NOTE | 2020-12-15 13:00 | NUR ---
PT LEFT UNIT ACCOMPANIED BY HOSPITAL STAFF
--- NOTE | 2020-12-15 13:45 | NUR ---
PT RETURNED TO UNIT ACCOMPANIED BY HOSPITAL STAFF
--- NOTE | 2020-12-15 15:50 | NUR ---
PT DC HOME WITH FAMILY MEMBER. IV DC. IV CATH TIP INTACT. DC INSTRUCTIONS PROVIDED VERBALLY AND WRITTEN. PT VERBALIZED UNDERSTANDING
--- NOTE | 2020-12-15 16:25 | NUR ---
I have reviewed this patient and I concur with the Shift Assessment completed by the Licensed Practical Nurse today this shift.
== END 2020-12-15 15:50 | disposition home or self-care (01) ==
LOC: D.ER 14:28 → D.M2 18:21 → OBSVTIME 18:21 → D.M2 12-15 15:50
PROVIDERS: Family Medicine; ADMIT Family Medicine; ATTEND Family Medicine
DX: R07.89 Other chest pain (principal)

== ENCOUNTER 2020-12-31 22:51 | Emergency (ER) | payer BC ==
[~2020-12-31] VITALS: Ht 165.1 cm; Wt 59.1 kg
[~2020-12-31 22:51] MED LIST changes: +FISH OIL 1,0001 CA1 PO; +GLUCOSAMINE HC500 MG PO
[2020-12-31 22:55] VITALS: Ht 165.1 cm; Wt 59.1 kg
[2020-12-31 23:42] LABS: BASOPHILS 0.4 % (0-2); EOSINOPHILS 2.6 % (0-7); HEMATOCRIT 41.3 % (36.0-48.0); HEMOGLOBIN 14.4 g/dL (12-16); IMMATURE GRANULOCYTES 0.1 % (0-5); LYMPHOCYTE ABS# 2.18 10x3/uL (1.18-3.74); LYMPHOCYTES 31.4 % (15-50); MCH 30.5 pg (26.0-34.0); MCHC 34.9 g/dL (31.0-37.0); MCV 87.5 fL (80.0-100.0); MEAN PLATELET VOLUME 9.3 fL (7.4-10.4); MONOCYTES 12.7 % (2-11); NEUTROPHIL ABS# 3.67 10x3/uL (1.56-6.13); NEUTROPHILS 52.8 % (40-80); PLATELET COUNT 387 10x3/uL (130-400); RBC 4.72 10x6/uL (4.00-5.40); RDW 12.3 % (11.5-14.5)
[2020-12-31 23:51] LABS: BILIRUBIN NEGATIVE (NEGATIVE); HCG URINE NEGATIVE (NEGATIVE); KETONE NEGATIVE (NEGATIVE); NITRITE NEGATIVE (NEGATIVE); UROBILINOGEN NORMAL mg/dL (< 2)
[2020-12-31 23:52] LABS: CALC OSMOLALITY 276 mosm/kg (275-300); CALCIUM 9.6 mg/dL (8.5-10.1); CARBON DIOXIDE 26.4 mmol/L (21.0-32.0); CHLORIDE - SERUM 102 mmol/L (98-107); CREATININE - SERUM 0.9 mg/dL (0.6-1.3); POTASSIUM - SERUM 3.7 mmol/L (3.5-5.1); SODIUM 139 mmol/L (136-145); UREA NITROGEN 11 mg/dL (7-18); eGFR NON AFRICAN AMERICAN 74 mL/min (90-120)
[2020-12-31 23:53] LABS: GLUCOSE 93 mg/dL (74-106)
[2021-01-01 00:01] LABS: APTT 28.8 SECONDS (22.8-39.4); INR 1.08 (0.85-1.17)
[2021-01-01 00:02] LABS: D-DIMER-QUANTITATIVE < 0.27 ug/mLFEU (0.20-0.54)
[2021-01-01 00:09] LABS: ALBUMIN 4.3 g/dL (3.4-5.0); ALKALINE PHOSPHATASE 69 U/L (30-120); ALT (SGPT) 31 U/L (10-68); BILIRUBIN - TOTAL 0.68 mg/dL (0.2-1.3); PRO BNP 22 pg/mL (0-125); PROTEIN - SERUM 8.3 g/dL (6.4-8.2)
[2021-01-01 00:18] LABS: TROPONIN-I < 0.017 ng/mL (0.000-0.060)
[2021-01-01] MEDS ORDERED: PREDNISONE20 MG PO (02:12)
[2021-01-01 02:29] VITALS: BP 117/74
== END 2021-01-01 02:27 | disposition home or self-care (01) ==
LOC: D.ER 22:51
PROVIDERS: Student in an Organized Health Care Education/Training Program
DX: R07.9 Chest pain, unspecified (principal); M25.561 Pain in right knee